=== PATIENT | male | born 1990 | race African-American/Black ===

== ENCOUNTER 2020-07-05 12:25 | Emergency (ER) | payer OTHER, SELFPAY ==
[2020-07-05 13:08] VITALS: BP 129/79; PULSE 84; RESP 16; TEMP 36.6; O2SAT 96; BMI 25.7
--- NOTE | 2020-07-05 13:42 | XR_ITS ---
EXAMINATION: XR CHEST CLINICAL INFORMATION: Chest wall pain COMPARISON: None TECHNIQUE: Frontal view of the chest was obtained. FINDINGS: No significant abnormality is noted involving the heart, lungs, mediastinum, bony thorax or soft tissues. XR/XR chest 1V IMPRESSION: Unremarkable examination.
--- NOTE | 2020-07-05 13:42 | ECG_ITS ---
Test Reason : GENERAL WEAKNESS Blood Pressure : / mmHG Vent. Rate : 075 BPM Atrial Rate : 075 BPM P-R Int : 178 ms QRS Dur : 080 ms QT Int : 374 ms P-R-T Axes : 049 015 019 degrees QTc Int : 417 ms Normal sinus rhythm Nonspecific T wave abnormality Abnormal ECG No previous ECGs available Referred By: Ruiz Adan Electronically Signed By:SHARI BENNETT MD
[2020-07-05 15:10] LABS: MANUAL DIFF FLAG NO
[2020-07-05 15:11] LABS: Basophils Percent Auto 0.3 % (0-2); Eosinophils Absolute Auto 0.1 X10*3/uL (0.0-0.4); Eosinophils Percent Auto 0.8 % (0-4); Hematocrit 46.5 % (42-52); Hemoglobin 17.1 g/dl (14.0-18.0); Imm Gran Abs Auto 0.02 X10*3/uL (0.00-0.03); Imm Gran Pct Auto 0.3 % (0.0-0.4); Lymphocytes Absolute Auto 2.5 X10*3/uL (1.2-4.9); Lymphocytes Percent Auto 39.1 % (20-40); Mean Corpuscular HGB Conc 36.8 g/dl (31.0-36.0); Mean Corpuscular Hemoglobin 31.5 pg (27.0-33.0); Mean Corpuscular Volume 85.8 fL (80-98); Mean Platelet Volume 12.1 fL (9.4-12.4); Monocytes Absolute Auto 0.4 X10*3/uL (0.1-1.2); Monocytes Percent Auto 5.4 % (2-11); Neutrophils Absolute Auto 3.5 X10*3/uL (2.0-8.3); Neutrophils Percent Auto 54.1 % (45-73); Platelet Count 212 X10*3/uL (160-400); Red Blood Count 5.42 X10*6/uL (4.60-5.80); Red Cell Distribution Width 11.9 % (11.0-16.0); White Blood Count 6.4 X10*3/uL (4.8-10.8)
[2020-07-05 15:14] LABS: Glucose Urine UA NEG (NEG); Leukocyte Esterase Urine NEG (NEG); Nitrite Urine NEG (NEG); Specific Gravity - Urine 1.025 (1.005-1.025); Urine Blood NEG (NEG); Urine Ketones NEG (NEG); Urine Protein NEG (NEG-TRACE)
[2020-07-05 15:15] LABS: Appearance Urine CLEAR; Color Urine YELLOW
[2020-07-05 15:22] LABS: RBC Urine 0-2 /HPF (0); WBC Urine 0 /HPF (0-4)
[2020-07-05 15:23] LABS: Mucus Urine 2+ /LPF
--- NOTE | 2020-07-05 15:27 | ED_ITS ---
HPI - General Adult General Chief complaint: General Medical <Myron Blanton MD - Last Filed: 07/11/20 15:59> Stated complaint: HEADACHE MULTIPLE COMPLAINTS <Myron Blanton MD - Last Filed: 07/11/20 15:59> Time Seen by Provider: 07/05/20 13:42 <Myron Blanton MD - Last Filed: 07/11/20 15:59> Source: patient <Ruiz Adan NP - Last Filed: 07/05/20 16:31> Mode of arrival: ambulatory <Ruiz Adan NP - Last Filed: 07/05/20 16:31> Limitations: no limitations <Ruiz Adan NP - Last Filed: 07/05/20 16:31> History of Present Illness HPI narrative: 29-year-old male otherwise healthy denies any significant past medical history presents ambulatory via triage with multiple complaints 1. . States he recently had a break-up from a long-term relationship and had intercourse with a new female which was unprotected and he has concern for STI. He denies any symptoms. States he would like to get tested. No specific exposure expressed. 2. States he has been having intermittent chest pains mostly when he gets ?upset? pain is described as achy in the chest and nonradiating. Denies any shortness of breath, URI symptoms. 3. States he has been having some irritation around the upper and lower eyelid which he has applied cream to but seems to make it denies any pain in the I irritation is only on the skin on the lids. <Ruiz Adan NP - Last Filed: 07/05/20 16:31> Onset (ago): day(s) <Ruiz Adan NP - Last Filed: 07/05/20 16:31> Location: eyes, left and right <Ruiz Adan NP - Last Filed: 07/05/20 16:31> Radiation: non-radiation <Ruiz Adan NP - Last Filed: 07/05/20 16:31> Severity: mild <Ruiz Adan NP - Last Filed: 07/05/20 16:31> Pain Consistency: constant <Ruiz Adan NP - Last Filed: 07/05/20 16:31> Exacerbating factors: none <Ruiz Adan NP - Last Filed: 07/05/20 16:31> Treatments prior to arrival: none <Ruiz Adan NP - Last Filed: 07/05/20 16:31> Related Data Home medications: Previous Rx's Medication Instructions Recorded prednisone 40 mg PO DAILY 5 Days #10 tab 07/05/20 <Myron Blanton MD - Last Filed: 07/11/20 15:59> Allergies/adverse reactions: Allergies Allergy/AdvReac Type Severity Reaction Status Date / Time No Known Allergies Allergy Verified 07/05/20 13:42 <Myron Blanton MD - Last Filed: 07/11/20 15:59> Review of Systems Review of Systems: Constitutional: No Weight loss, No Fever, No Chills, No Night Sweats, No Fatigue, No Malaise ENT/Mouth: No Hearing loss, No Ear Pain, No Nasal Congestion, No Sinus Pain, No Hoarseness, No sore throat, No Rhinorrhea, No Swallowing Difficulty Eyes: No Eye Pain, No Swelling, No Redness, No Foreign Body, No Discharge, No Vision Changes Cardiovascular: No SOB, No Dyspnea on Exertion, No Orthopnea, No Edema, No Palpitations Respiratory: No Cough, No Sputum, No Wheezing, No Smoke Exposure, No Dyspnea Gastrointestinal: No Nausea, No Vomiting, No Diarrhea, No Constipation, No abdominal Pain Genitourinary: No Dysuria, No Urinary Frequency, No Hematuria, No Urinary In continence, No Urgency, No Flank Pain, No Urinary Flow Changes, No Hesitancy Musculoskeletal: No joint pain, No Myalgias, No Joint Swelling Skin: No Skin Lesions Heme/Lymph: No Bruising, No Bleeding,No Lymphadenopathy Endocrine: No Polyuria, No Polydipsia, No Temperature Intolerance <Ruiz Adan NP - Last Filed: 07/05/20 16:31> Yes all other systems are reviewed and are negative <Ruiz Adan NP - Last Filed: 07/05/20 16:31> [facility] Past Medical History Attestation statement: The following information was validated with the patient. <Ruiz Adan NP - Last Filed: 07/05/20 16:31> Social History Social History: Social History Alcohol intake: never Smoked in Last 30 Days: No Use of substances other than those prescribed or required for medical reasons: Yes Substance Use Type: Marijuana Advance Directives: No Advance Directives Information Provided: No <Myron Blanton MD - Last Filed: 07/11/20 15:59> Physical Exam Vital Signs: Vital Signs: Last Vital Signs Temp 97.9 F 07/05/20 15:39 Pulse 71 07/05/20 15:39 Resp 16 07/05/20 15:39 BP 115/70 07/05/20 15:39 Pulse Ox 98 07/05/20 15:39 Body Mass Index 25.7 <Myron Blanton MD - Last Filed: 07/11/20 15:59> Vital Signs: Last Vital Signs Temp 97.9 F 07/05/20 15:39 Pulse 71 07/05/20 15:39 Resp 16 07/05/20 15:39 BP 115/70 07/05/20 15:39 Pulse Ox 98 07/05/20 15:39 Body Mass Index 25.7 Reviewed <Ruizmarco Adan NP - Last Filed: 07/05/20 16:31> Const: General: cooperative and healthy appearing; No acute distress or intoxicated appearing <[facility] DANA Adan - Last Filed: 07/05/20 16:31> Nutritional Appearance: average body habitus <[facility] DANA Adan - Last Filed: 07/05/20 16:31> Orientation/consciousness: patient oriented x3 <[facility] DANA Adan - Last Filed: 07/05/20 16:31> HENMT: Head: Yes normal to inspection <[facility] DANA Adan - Last Filed: 07/05/20 16:31> Ears: hearing grossly normal bilaterally <[facility] DANA Adan - Last Filed: 07/05/20 16:31> Eyes: Other: Slightly dry scaly skin around the bilateral eyes upper and lower lids. Slight hyperplasia consistent with atopic dermatitis. <[facility] DANA Adan - Last Filed: 07/05/20 16:31> General: appearance normal, both eyes and all related structures <[facility] DANA Adan - Last Filed: 07/05/20 16:31> Visual Sotomayor: normal visual sotomayor by confrontation <[facility] DANA Adan - Last Filed: 07/05/20 16:31> Neck: Neck: Yes normal visual inspection <Ruiz Adan COMMERCIAL DESIGNER - Last Filed: 07/05/20 16:31> Thyroid: Thyroid normal <Ruiz Loco COMMERCIAL DESIGNER - Last Filed: 07/05/20 16:31> Chest: Chest palpation & inspection: normal inspection of the chest <Ruiz Adan COMMERCIAL DESIGNER - Last Filed: 07/05/20 16:31> Resp: Effort & Inspection: normal respiratory effort <[facility] Loco COMMERCIAL DESIGNER - Last Filed: 07/05/20 16:31> Cardio: Jugular venous distension: no JVD <Ruiz Loco COMMERCIAL DESIGNER - Last Filed: 07/05/20 16:31> Rate: regular rate <[facility] Loco - Last Filed: 07/05/20 16:31> Heart sounds: S1 normal heart sound present and S2 normal heart sound present <[facility] Loco - Last Filed: 07/05/20 16:31> GI: Inspection: Yes normal to inspection <[facility] Loco - Last Filed: 07/05/20 16:31> Percussion: Yes normal to percussion <[facility] Loco COMMERCIAL DESIGNER - Last Filed: 07/05/20 16:31> Auscultation: normal bowel sounds <Ruiz Loco COMMERCIAL DESIGNER - Last Filed: 07/05/20 16:31> : General: Yes no CVA tenderness <Ruiz Loco COMMERCIAL DESIGNER - Last Filed: 07/05/20 16:31> Back/Spine/Pelvis: Back: no CVA tenderness <[facility] Loco - Last Filed: 07/05/20 16:31> Skin: General skin exam: no rashes or lesions noted <Ruiz Adan COMMERCIAL DESIGNER - Last Filed: 07/05/20 16:31> Neuro: General: patient oriented x3 <Ruiz Adan COMMERCIAL DESIGNER - Last Filed: 07/05/20 16:31> Extrem: General: Yes normal to inspection <Ruiz Loco COMMERCIAL DESIGNER - Last Filed: 07/05/20 16:31> Course Course Course Narrative: I have discussed the case and management with the [place] <Myron Blanton MD - Last Filed: 07/11/20 15:59> Medical Decision Making [facility] Narrative Medical decision making narrative: Interviewed 29-year-old male with no significant past medical history presenting with multiple complaints as noted above. Chest x-ray, labs overall stable. Troponin negative. EKG with nonspecific T-wave findings case was discussed with attending Dr. mariano nguyen refer for outpatient. In relation to his rash around the eyes consistent with atopic dermatitis will start a short course prednisone. In terms of room his exposure to possible STI offers no specific concern he was tested for CT Marcella and empirically treated otherwise asymptomatic. Will refer to outpatient clinic for full panel testing. Patient verbalized understanding. Stable for discharge. <Ruiz Adan NP - Last Filed: 07/05/20 16:31> Lab Data Result diagrams: : 07/05/20 15:03 07/05/20 15:03 <Myron Blanton MD - Last Filed: 07/11/20 15:59> Labs: Lab Results 07/05/20 07/05/20 07/05/20 Range/Units 15:03 15:03 15:03 WBC 6.4 (4.8-10.8) X10*3/uL RBC 5.42 (4.60-5.80) X10*6/uL Hgb 17.1 (14.0-18.0) g/dl Hct 46.5 (42-52) % MCV 85.8 (80-98) fL MCH 31.5 (27.0-33.0) pg MCHC 36.8 H (31.0-36.0) g/dl RDW 11.9 (11.0-16.0) % Plt Count 212 (160-400) X10*3/uL MPV 12.1 (9.4-12.4) fL Immature Gran % (Auto) 0.3 (0.0-0.4) % Neut % (Auto) 54.1 (45-73) % Lymph % (Auto) 39.1 (20-40) % Grainger % (Auto) 5.4 (2-11) % Eos % (Auto) 0.8 (0-4) % Baso % (Auto) 0.3 (0-2) % Lymph # (Auto) 2.5 (1.2-4.9) X10*3/uL Grainger # (Auto) 0.4 (0.1-1.2) X10*3/uL Eos # (Auto) 0.1 (0.0-0.4) X10*3/uL Baso # (Auto) 0.0 (0.0-0.2) X10*3/uL Abs Immat Gran (auto) 0.02 (0.00-0.03) X10*3/uL Absolute Neuts (auto) 3.5 (2.0-8.3) X10*3/uL Absolute Nucleated RBC 0.000 (0.0-0.012) X10*3/uL Nucleated RBC % (auto) 0.0 (0.0-0.2) /100WBC Sodium 136 (135-145) mmol/L Potassium 4.4 (3.3-5.1) mmol/l Chloride 104 (96-108) mmol/L Carbon Dioxide 24 (22-29) mmol/L Anion Gap 12 (12-20) BUN 11 (9-16) mg/dL Creatinine 1.22 (0.5-1.4) mg/dL Estim Creat Clear Calc 94.2 Estimated GFR > 60 Random Glucose 96 (60-115) mg/dL Calcium 8.9 (8.4-10.2) mg/dL Total Bilirubin 0.7 (0.0-1.0) mg/dL AST 18 (5-37) U/L ALT 18 (0-40) U/L Alkaline Phosphatase 56 (39-117) U/L Troponin I High Sens < 3.5 (<3.5-35.0) ng/L Total Protein 7.1 (6.5-8.0) g/dL Albumin 4.3 (3.5-5.0) g/dL Urine Color Urine Appearance Urine pH (5.0-8.0) Ur Specific Carney (1.005-1.025) Urine Protein (NEG-TRACE) MG/DL Urine Glucose (UA) (NEG) MG/DL Urine Ketones (NEG) MG/DL Urine Blood (NEG) Urine Nitrite (NEG) Ur Leukocyte Esterase (NEG) Urine RBC (0) /HPF Urine WBC (0-4) /HPF Ur Squamous Epith Cells /LPF Urine Bacteria /LPF Urine Mucus /LPF Chlam trachomat DNA PCR (Not Detect.) N.gonorrhoeae DNA (PCR) (Not Detect.) 07/05/20 07/05/20 Range/Units 15:03 15:03 WBC (4.8-10.8) X10*3/uL RBC (4.60-5.80) X10*6/uL Hgb (14.0-18.0) g/dl Hct (42-52) % MCV (80-98) fL MCH (27.0-33.0) pg MCHC (31.0-36.0) g/dl RDW (11.0-16.0) % Plt Count (160-400) X10*3/uL MPV (9.4-12.4) fL Immature Gran % (Auto) (0.0-0.4) % Neut % (Auto) (45-73) % Lymph % (Auto) (20-40) % Grainger % (Auto) (2-11) % Eos % (Auto) (0-4) % Baso % (Auto) (0-2) % Lymph # (Auto) (1.2-4.9) X10*3/uL Grainger # (Auto) (0.1-1.2) X10*3/uL Eos # (Auto) (0.0-0.4) X10*3/uL Baso # (Auto) (0.0-0.2) X10*3/uL Abs Immat Gran (auto) (0.00-0.03) X10*3/uL Absolute Neuts (auto) (2.0-8.3) X10*3/uL Absolute Nucleated RBC (0.0-0.012) X10*3/uL Nucleated RBC % (auto) (0.0-0.2) /100WBC Sodium (135-145) mmol/L Potassium (3.3-5.1) mmol/l Chloride (96-108) mmol/L Carbon Dioxide (22-29) mmol/L Anion Gap (12-20) BUN (9-16) mg/dL Creatinine (0.5-1.4) mg/dL Estim Creat Clear Calc Estimated GFR Random Glucose (60-115) mg/dL Calcium (8.4-10.2) mg/dL Total Bilirubin (0.0-1.0) mg/dL AST (5-37) U/L ALT (0-40) U/L Alkaline Phosphatase (39-117) U/L Troponin I High Sens (<3.5-35.0) ng/L Total Protein (6.5-8.0) g/dL Albumin (3.5-5.0) g/dL Urine Color YELLOW Urine Appearance CLEAR Urine pH 7.0 (5.0-8.0) Ur Specific Carney 1.025 (1.005-1.025) Urine Protein NEG (NEG-TRACE) MG/DL Urine Glucose (UA) NEG (NEG) MG/DL Urine Ketones NEG (NEG) MG/DL Urine Blood NEG (NEG) Urine Nitrite NEG (NEG) Ur Leukocyte Esterase NEG (NEG) Urine RBC 0-2 (0) /HPF Urine WBC 0 (0-4) /HPF Ur Squamous Epith Cells NONE /LPF Urine Bacteria NONE /LPF Urine Mucus 2+ /LPF Chlam trachomat DNA PCR NOT DETECTED (Not Detect.) N.gonorrhoeae DNA (PCR) NOT DETECTED (Not Detect.) <Myron Blanton MD - Last Filed: 07/11/20 15:59> Lab Results 07/05/20 07/05/20 07/05/20 Range/Units 15:03 15:03 15:03 WBC 6.4 (4.8-10.8) X10*3/uL RBC 5.42 (4.60-5.80) X10*6/uL Hgb 17.1 (14.0-18.0) g/dl Hct 46.5 (42-52) % MCV 85.8 (80-98) fL MCH 31.5 (27.0-33.0) pg MCHC 36.8 H (31.0-36.0) g/dl RDW 11.9 (11.0-16.0) % Plt Count 212 (160-400) X10*3/uL MPV 12.1 (9.4-12.4) fL Immature Gran % (Auto) 0.3 (0.0-0.4) % Neut % (Auto) 54.1 (45-73) % Lymph % (Auto) 39.1 (20-40) % Grainger % (Auto) 5.4 (2-11) % Eos % (Auto) 0.8 (0-4) % Baso % (Auto) 0.3 (0-2) % Lymph # (Auto) 2.5 (1.2-4.9) X10*3/uL Grainger # (Auto) 0.4 (0.1-1.2) X10*3/uL Eos # (Auto) 0.1 (0.0-0.4) X10*3/uL Baso # (Auto) 0.0 (0.0-0.2) X10*3/uL Abs Immat Gran (auto) 0.02 (0.00-0.03) X10*3/uL Absolute Neuts (auto) 3.5 (2.0-8.3) X10*3/uL Absolute Nucleated RBC 0.000 (0.0-0.012) X10*3/uL Nucleated RBC % (auto) 0.0 (0.0-0.2) /100WBC Sodium 136 (135-145) mmol/L Potassium 4.4 (3.3-5.1) mmol/l Chloride 104 (96-108) mmol/L Carbon Dioxide 24 (22-29) mmol/L Anion Gap 12 (12-20) BUN 11 (9-16) mg/dL Creatinine 1.22 (0.5-1.4) mg/dL Estim Creat Clear Calc 94.2 Estimated GFR > 60 Random Glucose 96 (60-115) mg/dL Calcium 8.9 (8.4-10.2) mg/dL Total Bilirubin 0.7 (0.0-1.0) mg/dL AST 18 (5-37) U/L ALT 18 (0-40) U/L Alkaline Phosphatase 56 (39-117) U/L Troponin I High Sens < 3.5 (<3.5-35.0) ng/L Total Protein 7.1 (6.5-8.0) g/dL Albumin 4.3 (3.5-5.0) g/dL Urine Color Urine Appearance Urine pH (5.0-8.0) Ur Specific Carney (1.005-1.025) Urine Protein (NEG-TRACE) MG/DL Urine Glucose (UA) (NEG) MG/DL Urine Ketones (NEG) MG/DL Urine Blood (NEG) Urine Nitrite (NEG) Ur Leukocyte Esterase (NEG) Urine RBC (0) /HPF Urine WBC (0-4) /HPF Ur Squamous Epith Cells /LPF Urine Bacteria /LPF Urine Mucus /LPF Chlam trachomat DNA PCR (Not Detect.) N.gonorrhoeae DNA (PCR) (Not Detect.) 07/05/20 07/05/20 Range/Units 15:03 15:03 WBC (4.8-10.8) X10*3/uL RBC (4.60-5.80) X10*6/uL Hgb (14.0-18.0) g/dl Hct (42-52) % MCV (80-98) fL MCH (27.0-33.0) pg MCHC (31.0-36.0) g/dl RDW (11.0-16.0) % Plt Count (160-400) X10*3/uL MPV (9.4-12.4) fL Immature Gran % (Auto) (0.0-0.4) % Neut % (Auto) (45-73) % Lymph % (Auto) (20-40) % Grainger % (Auto) (2-11) % Eos % (Auto) (0-4) % Baso % (Auto) (0-2) % Lymph # (Auto) (1.2-4.9) X10*3/uL Grainger # (Auto) (0.1-1.2) X10*3/uL Eos # (Auto) (0.0-0.4) X10*3/uL Baso # (Auto) (0.0-0.2) X10*3/uL Abs Immat Gran (auto) (0.00-0.03) X10*3/uL Absolute Neuts (auto) (2.0-8.3) X10*3/uL Absolute Nucleated RBC (0.0-0.012) X10*3/uL Nucleated RBC % (auto) (0.0-0.2) /100WBC Sodium (135-145) mmol/L Potassium (3.3-5.1) mmol/l Chloride (96-108) mmol/L Carbon Dioxide (22-29) mmol/L Anion Gap (12-20) BUN (9-16) mg/dL Creatinine (0.5-1.4) mg/dL Estim Creat Clear Calc Estimated GFR Random Glucose (60-115) mg/dL Calcium (8.4-10.2) mg/dL Total Bilirubin (0.0-1.0) mg/dL AST (5-37) U/L ALT (0-40) U/L Alkaline Phosphatase (39-117) U/L Troponin I High Sens (<3.5-35.0) ng/L Total Protein (6.5-8.0) g/dL Albumin (3.5-5.0) g/dL Urine Color YELLOW Urine Appearance CLEAR Urine pH 7.0 (5.0-8.0) Ur Specific Carney 1.025 (1.005-1.025) Urine Protein NEG (NEG-TRACE) MG/DL Urine Glucose (UA) NEG (NEG) MG/DL Urine Ketones NEG (NEG) MG/DL Urine Blood NEG (NEG) Urine Nitrite NEG (NEG) Ur Leukocyte Esterase NEG (NEG) Urine RBC 0-2 (0) /HPF Urine WBC 0 (0-4) /HPF Ur Squamous Epith Cells NONE /LPF Urine Bacteria NONE /LPF Urine Mucus 2+ /LPF Chlam trachomat DNA PCR NOT DETECTED (Not Detect.) N.gonorrhoeae DNA (PCR) NOT DETECTED (Not Detect.) <Ruiz Adan NP - Last Filed: 07/05/20 16:31> Imaging Data Chest x-ray: Radiologist's impression: GLO hernandez 29 M 1990 [place] [id number] XRay Report Signed Patient: GLO hernandezMR#: [id number] : 1990Acct:[id number] Age/Sex: 29 / MADM Date: 07/05/20 Loc: .ED Attending Dr: Ordering Physician: Ruiz Adan NP Date of Service: 07/05/20 Procedure(s): XR chest 1V Accession Number(s): [id number] cc: Ruiz Adan NP~ EXAMINATION: XR CHEST CLINICAL INFORMATION: Chest wall pain COMPARISON: None TECHNIQUE: Frontal view of the chest was obtained. FINDINGS: No significant abnormality is noted involving the heart, lungs, mediastinum, bony thorax or soft tissues. XR/XR chest 1V IMPRESSION: Unremarkable examination. Dictated By:SENTHIL BENNETT MD Signed By:<Electronically signed by SENTHIL BENNETT MD in OV>07/05/20 1354 DD/ 1342 TD/TT: Feed Mixer Helper: JAYLENE <Ruiz Adan NP - Last Filed: 07/05/20 16:31> ECG Data Interpretation: Normal sinus rhythm Rate 75 Nonspecific T-wave abnormality in the lateral leads No previous available <Ruiz Adan NP - Last Filed: 07/05/20 16:31> Discharge Plan Discharge Clinical Impression: Atypical chest pain, Anxiety, Screen for STD (sexually transmitted disease), Dermatitis contact, eyelid <Myron Blanton MD - Last Filed: 07/11/20 15:59> Patient Disposition: Home, Self-Care <Myron Blanton MD - Last Filed: 07/11/20 15:59> Instructions: Chest Pain (ED), Sexually Transmitted Diseases (ED), Male Condom Use (ED), Anxiety (ED), Dermatitis (ED) <Myron Blanton MD - Last Filed: 07/11/20 15:59> Prescriptions: New prednisone 20 mg tablet 40 mg PO DAILY 5 Days Qty: 10 RF: 0 <Myron Blanton MD - Last Filed: 07/11/20 15:59> Referrals: Physician,Unknown [Primary Care Provider] - 2 days ([facility] [place], [place] Address: [address] [place] [address] Hours: Open ? Closes 7PM ) <Myron Blanton MD - Last Filed: 07/11/20 15:59> Interventions: ED Discharge Assessment Last Done: 07/05/20 16:29 <Myron Blanton MD - Last Filed: 07/11/20 15:59> Discharge Date/Time: 07/05/20 16:30 <Myron Blanton MD - Last Filed: 07/11/20 15:59>
[2020-07-05 15:39] VITALS: BP 115/70; PULSE 71; RESP 16; TEMP 36.6; O2SAT 98
[2020-07-05 15:40] LABS: Alanine Aminotransferase 18 U/L (0-40); Albumin Level 4.3 g/dL (3.5-5.0); Alkaline Phosphatase 56 U/L (39-117); Anion Gap 12 (12-20); Aspartate Amino Transferase 18 U/L (5-37); Bilirubin Total 0.7 mg/dL (0.0-1.0); Blood Urea Nitrogen 11 mg/dL (9-16); Calcium 8.9 mg/dL (8.4-10.2); Carbon Dioxide 24 mmol/L (22-29); Chloride 104 mmol/L (96-108); Creatinine Clr Calc Pharmacy 94.2; Estimated Glomerular Filt Rate > 60; Glucose Random 96 mg/dL (60-115); Potassium 4.4 mmol/l (3.3-5.1); Sodium 136 mmol/L (135-145); Total Protein 7.1 g/dL (6.5-8.0)
[2020-07-05 15:42] LABS: Troponin-I High Sensitivity < 3.5 ng/L (<3.5-35.0)
[2020-07-05] MEDS: Azithromycin 500 MG TABLET 1000 MG PO (16:17)
[2020-07-05] MEDS: cefTRIAXone sodium 250 MG, Lidocaine HCl 1 % MPF 0.9 ML IM (16:17)
[2020-07-06 10:54] LABS: CT PCR NOT DETECTED (Not Detect.); NG PCR NOT DETECTED (Not Detect.)
== END 2020-07-05 16:30 | disposition home or self-care (01) ==
PROVIDERS: Nurse Practitioner Primary Care; Emergency Provider Emergency Medicine
DX: R07.89 Other chest pain (principal); H01.119 Allergic dermatitis of unspecified eye, unspecified eyelid; R51.9 Headache, unspecified; F41.9 Anxiety disorder, unspecified; F43.0 Acute stress reaction; Z20.2 Contact with and (suspected) exposure to infections with a predominantly sexual mode of transmission
CPT/HCPCS: 36415; 71045; 80053; 81001; 84484; 85025; 87491; 87591; 93005; 96372; 99284; J0696

== ENCOUNTER 2021-04-29 23:51 | Emergency (ER) | payer OTHER, SELFPAY ==
--- NOTE | ~2021-04-29 | CT_ITS ---
EXAMINATION: CT ANGIOGRAM RIGHT UPPER EXTREMITY CLINICAL INFORMATION: Laceration COMPARISON: None TECHNIQUE: Multidetector CT imaging of the right upper extremity was performed after the administration of 80 mL Omnipaque 350 intravenous contrast. Coronal and sagittal reformats are reviewed. This CT examination was performed using dose optimization techniques as appropriate, variously including the following: *Automated exposure control *Adjustment of mA and/or kV according to patient size (this includes techniques or standardized protocols for targeted exams where dose is matched to indication/reason for exam; i.e. extremities or head) *Use of iterative reconstruction technique DLP: 228 mGy-cm FINDINGS: The subclavian, axillary, brachial, radial and ulnar arteries are widely patent without evidence of traumatic laceration. There is evidence of a laceration involving the soft tissues overlying the biceps as well as the biceps musculature along the distal humerus, with associated subcutaneous and intramuscular air. An additional laceration is present involving the soft tissues of the volar forearm, both proximally and distally. No osseous abnormalities. No radiopaque foreign bodies. CT/CT angio UE RT IMPRESSION: No evidence of arterial injury within the right upper extremity.
[2021-04-29 23:59] VITALS: BP 139/86; PULSE 116; RESP 16; O2SAT 97; BMI 29.9
[2021-04-30 00:12] LABS: MANUAL DIFF FLAG NO
[2021-04-30 00:14] LABS: Basophils Percent Auto 0.2 % (0-2); Eosinophils Percent Auto 0.2 % (0-4); Hematocrit 48.1 % (42-52); Hemoglobin 17.8 g/dl (14.0-18.0); Imm Gran Abs Auto 0.06 X10*3/uL (0.00-0.03); Imm Gran Pct Auto 0.5 % (0.0-0.4); Lymphocytes Absolute Auto 4.7 X10*3/uL (1.2-4.9); Lymphocytes Percent Auto 35.8 % (20-40); Mean Corpuscular Hemoglobin 31.5 pg (27.0-33.0); Mean Corpuscular Volume 85.1 fL (80-98); Mean Platelet Volume 11.9 fL (9.4-12.4); Monocytes Absolute Auto 0.6 X10*3/uL (0.1-1.2); Monocytes Percent Auto 4.8 % (2-11); Neutrophils Absolute Auto 7.7 X10*3/uL (2.0-8.3); Neutrophils Percent Auto 58.5 % (45-73); Platelet Count 250 X10*3/uL (160-400); Red Blood Count 5.65 X10*6/uL (4.60-5.80); Red Cell Distribution Width 12.4 % (11.0-16.0); White Blood Count 13.1 X10*3/uL (4.8-10.8)
[2021-04-30 00:24] LABS: Prothrombin Time 11.5 SEC (9.9-13.0)
[2021-04-30 00:28] LABS: Alanine Aminotransferase 34 U/L (0-40); Albumin Level 4.8 g/dL (3.5-5.0); Alkaline Phosphatase 64 U/L (39-117); Anion Gap 20 (12-20); Aspartate Amino Transferase 22 U/L (5-37); Bilirubin Total 0.7 mg/dL (0.0-1.0); Blood Urea Nitrogen 7 mg/dL (9-16); Calcium 9.8 mg/dL (8.4-10.2); Carbon Dioxide 17 mmol/L (22-29); Chloride 106 mmol/L (96-108); Creatinine Clr Calc Pharmacy 100.5; Estimated Glomerular Filt Rate > 60; Glucose Random 106 mg/dL (60-115); Potassium 3.8 mmol/L (3.3-5.1); Sodium 139 mmol/L (135-145); Total Protein 7.8 g/dL (6.5-8.0)
--- NOTE | 2021-04-30 00:32 | ED_ITS ---
HPI - Wound/Laceration General Chief Complaint: Wound/Laceration <Mandie Mccullough MD - Last Filed: 04/30/21 04:39> Stated Complaint: Arm lac <Mandie Mccullough MD - Last Filed: 04/30/21 04:39> Time Seen by Provider: 04/29/21 23:57 <Mandie Mccullough MD - Last Filed: 04/30/21 04:39> Source: patient <Mandie Mccullough MD - Last Filed: 04/30/21 04:39> Mode of arrival: ambulatory <Mandie Mccullough MD - Last Filed: 04/30/21 04:39> History of Present Illness HPI narrative: 30-year-old male presents to the ER with multiple lacerations the right upper extremity after punching a window at home. Patient does not know when his last Tdap was and has no other complaints. <Mandie Mccullough MD - Last Filed: 04/30/21 04:39> Related Data Home Medications: Previous Rx's Medication Instructions Recorded prednisone 20 mg tablet 40 mg PO DAILY 5 Days #10 tab 07/05/20 cephalexin 500 mg capsule 500 mg PO Q12H 5 Days #10 cap 04/30/21 doxycycline hyclate 100 mg tablet 100 mg PO BID 5 Days #10 tab 04/30/21 <Mandie Mccullough MD - Last Filed: 04/30/21 04:39> Allergies/Adverse Reactions: Allergies Allergy/AdvReac Type Severity Reaction Status Date / Time No Known Allergies Allergy Verified 07/05/20 13:42 <Mandie Mccullough MD - Last Filed: 04/30/21 04:39> Review of Systems Review of Systems: For positives and negatives as stated in HPI 10 point of systems is otherwise negative. <Mandie Mccullough MD - Last Filed: 04/30/21 04:39> PMFSH Past Medical History Source: nursing notes reviewed <Mandie Mccullough MD - Last Filed: 04/30/21 04:39> Social History Social History: Social History Alcohol intake: never Substance Use Type: Marijuana Advance Directives: No <Mandie Mccullough MD - Last Filed: 04/30/21 04:39> Physical Exam Vital Signs: Vital Signs: Last Vital Signs Pulse 116 H 04/29/21 23:59 Resp 16 04/29/21 23:59 BP 139/86 04/29/21 23:59 Pulse Ox 97 04/29/21 23:59 Body Mass Index 29.9 VITAL SIGNS: Reviewed. GENERAL: Well developed, well nourished, in no acute distress. HEAD: Normocephalic/atraumatic EYES: PERRLA, EOMI EARS: Ext canals without abnormality, TMs non-bulging and non-erythematous NOSE: Nares patent bilateral OROPHARYNX: no oral lesions noted, posterior pharynx clear LUNGS: Normal breath sounds. No adventitious sounds or accessory muscle use. SpO2<97>, no chest wall injury CARDIOVASCULAR: Regular rate and rhythm without noted murmurs ABDOMEN: Soft, non-tender, non-distended with bowel sounds, no abdominal wall in jury. RIGHT UPPER EXTREMITY: There were 6-2 cm to 14 cm lacerations SKIN: Inspection of the skin reveals no rashes NEUROLOGIC: Alert and oriented x 4. <Mandie Mccullough MD - Last Filed: 04/30/21 04:39> Vital Signs: Last Vital Signs Pulse 116 H 04/29/21 23:59 Resp 16 04/29/21 23:59 BP 139/86 04/29/21 23:59 Pulse Ox 97 04/29/21 23:59 Body Mass Index 29.9 <Oziel Molina MD - Last Filed: 04/30/21 04:35> Course Course Course Narrative: 30-year-old male with history and clinical presentation consistent with multiple lacerations to right upper extremity good hemostasis was immediately established with pressure dressing and lab work was obtained as well as a CT with IV contrast to evaluate for any arterial injury to that extremity. Review of all investigations otherwise within normal limits and the multiple lacerations were repaired by Dr. Molina (please see the procedure note for details.) Patient received Tdap as well as initial antibiotics and will be discharged with remaining course and instructions follow-up with his primary care provider for re-evaluation as well as staple removal. <Mandie Mccullough MD - Last Filed: 04/30/21 04:39> MDM - Wound/Laceration Lab Data Result diagrams: : 04/30/21 00:08 04/30/21 00:08 <Mandie Mccullough MD - Last Filed: 04/30/21 04:39> Labs: Lab Results 04/30/21 04/30/21 04/30/21 Range/Units 00:08 00:08 00:10 WBC 13.1 H (4.8-10.8) X10*3/uL RBC 5.65 (4.60-5.80) X10*6/uL Hgb 17.8 (14.0-18.0) g/dl Hct 48.1 (42-52) % MCV 85.1 (80-98) fL MCH 31.5 (27.0-33.0) pg MCHC 37.0 H (31.0-36.0) g/dl RDW 12.4 (11.0-16.0) % Plt Count 250 (160-400) X10*3/uL MPV 11.9 (9.4-12.4) fL Immature Gran % (Auto) 0.5 H (0.0-0.4) % Neut % (Auto) 58.5 (45-73) % Lymph % (Auto) 35.8 (20-40) % [place] % (Auto) 4.8 (2-11) % Eos % (Auto) 0.2 (0-4) % Baso % (Auto) 0.2 (0-2) % Lymph # (Auto) 4.7 (1.2-4.9) X10*3/uL [place] # (Auto) 0.6 (0.1-1.2) X10*3/uL Eos # (Auto) 0.0 (0.0-0.4) X10*3/uL Baso # (Auto) 0.0 (0.0-0.2) X10*3/uL Abs Immat Gran (auto) 0.06 H (0.00-0.03) X10*3/uL Absolute Neuts (auto) 7.7 (2.0-8.3) X10*3/uL Absolute Nucleated RBC 0.000 (0.0-0.012) X10*3/uL Nucleated RBC % (auto) 0.0 (0.0-0.2) /100WBC PT (9.9-13.0) SEC INR (0.9-1.1) Sodium 139 (135-145) mmol/L Potassium 3.8 (3.3-5.1) mmol/L Chloride 106 (96-108) mmol/L Carbon Dioxide 17 L (22-29) mmol/L Anion Gap 20 (12-20) BUN 7 L (9-16) mg/dL Creatinine 1.23 (0.5-1.4) mg/dL Estim Creat Clear Calc 100.5 Estimated GFR > 60 Random Glucose 106 (60-115) mg/dL Calcium 9.8 D (8.4-10.2) mg/dL Total Bilirubin 0.7 (0.0-1.0) mg/dL AST 22 (5-37) U/L ALT 34 (0-40) U/L Alkaline Phosphatase 64 (39-117) U/L Total Protein 7.8 (6.5-8.0) g/dL Albumin 4.8 (3.5-5.0) g/dL Blood Type O Positive Antibody Screen NEGATIVE 04/30/21 Range/Units 00:15 WBC (4.8-10.8) X10*3/uL RBC (4.60-5.80) X10*6/uL Hgb (14.0-18.0) g/dl Hct (42-52) % MCV (80-98) fL MCH (27.0-33.0) pg MCHC (31.0-36.0) g/dl RDW (11.0-16.0) % Plt Count (160-400) X10*3/uL MPV (9.4-12.4) fL Immature Gran % (Auto) (0.0-0.4) % Neut % (Auto) (45-73) % Lymph % (Auto) (20-40) % [place] % (Auto) (2-11) % Eos % (Auto) (0-4) % Baso % (Auto) (0-2) % Lymph # (Auto) (1.2-4.9) X10*3/uL [place] # (Auto) (0.1-1.2) X10*3/uL Eos # (Auto) (0.0-0.4) X10*3/uL Baso # (Auto) (0.0-0.2) X10*3/uL Abs Immat Gran (auto) (0.00-0.03) X10*3/uL Absolute Neuts (auto) (2.0-8.3) X10*3/uL Absolute Nucleated RBC (0.0-0.012) X10*3/uL Nucleated RBC % (auto) (0.0-0.2) /100WBC PT 11.5 (9.9-13.0) SEC INR 1.0 (0.9-1.1) Sodium (135-145) mmol/L Potassium (3.3-5.1) mmol/L Chloride (96-108) mmol/L Carbon Dioxide (22-29) mmol/L Anion Gap (12-20) BUN (9-16) mg/dL Creatinine (0.5-1.4) mg/dL Estim Creat Clear Calc Estimated GFR Random Glucose (60-115) mg/dL Calcium (8.4-10.2) mg/dL Total Bilirubin (0.0-1.0) mg/dL AST (5-37) U/L ALT (0-40) U/L Alkaline Phosphatase (39-117) U/L Total Protein (6.5-8.0) g/dL Albumin (3.5-5.0) g/dL Blood Type Antibody Screen <Mandie Mccullough MD - Last Filed: 04/30/21 04:39> Lab Results 04/30/21 04/30/21 04/30/21 Range/Units 00:08 00:08 00:10 WBC 13.1 H (4.8-10.8) X10*3/uL RBC 5.65 (4.60-5.80) X10*6/uL Hgb 17.8 (14.0-18.0) g/dl Hct 48.1 (42-52) % MCV 85.1 (80-98) fL MCH 31.5 (27.0-33.0) pg MCHC 37.0 H (31.0-36.0) g/dl RDW 12.4 (11.0-16.0) % Plt Count 250 (160-400) X10*3/uL MPV 11.9 (9.4-12.4) fL Immature Gran % (Auto) 0.5 H (0.0-0.4) % Neut % (Auto) 58.5 (45-73) % Lymph % (Auto) 35.8 (20-40) % [place] % (Auto) 4.8 (2-11) % Eos % (Auto) 0.2 (0-4) % Baso % (Auto) 0.2 (0-2) % Lymph # (Auto) 4.7 (1.2-4.9) X10*3/uL [place] # (Auto) 0.6 (0.1-1.2) X10*3/uL Eos # (Auto) 0.0 (0.0-0.4) X10*3/uL Baso # (Auto) 0.0 (0.0-0.2) X10*3/uL Abs Immat Gran (auto) 0.06 H (0.00-0.03) X10*3/uL Absolute Neuts (auto) 7.7 (2.0-8.3) X10*3/uL Absolute Nucleated RBC 0.000 (0.0-0.012) X10*3/uL Nucleated RBC % (auto) 0.0 (0.0-0.2) /100WBC PT (9.9-13.0) SEC INR (0.9-1.1) Sodium 139 (135-145) mmol/L Potassium 3.8 (3.3-5.1) mmol/L Chloride 106 (96-108) mmol/L Carbon Dioxide 17 L (22-29) mmol/L Anion Gap 20 (12-20) BUN 7 L (9-16) mg/dL Creatinine 1.23 (0.5-1.4) mg/dL Estim Creat Clear Calc 100.5 Estimated GFR > 60 Random Glucose 106 (60-115) mg/dL Calcium 9.8 D (8.4-10.2) mg/dL Total Bilirubin 0.7 (0.0-1.0) mg/dL AST 22 (5-37) U/L ALT 34 (0-40) U/L Alkaline Phosphatase 64 (39-117) U/L Total Protein 7.8 (6.5-8.0) g/dL Albumin 4.8 (3.5-5.0) g/dL Blood Type O Positive Antibody Screen NEGATIVE 04/30/21 Range/Units 00:15 WBC (4.8-10.8) X10*3/uL RBC (4.60-5.80) X10*6/uL Hgb (14.0-18.0) g/dl Hct (42-52) % MCV (80-98) fL MCH (27.0-33.0) pg MCHC (31.0-36.0) g/dl RDW (11.0-16.0) % Plt Count (160-400) X10*3/uL MPV (9.4-12.4) fL Immature Gran % (Auto) (0.0-0.4) % Neut % (Auto) (45-73) % Lymph % (Auto) (20-40) % [place] % (Auto) (2-11) % Eos % (Auto) (0-4) % Baso % (Auto) (0-2) % Lymph # (Auto) (1.2-4.9) X10*3/uL [place] # (Auto) (0.1-1.2) X10*3/uL Eos # (Auto) (0.0-0.4) X10*3/uL Baso # (Auto) (0.0-0.2) X10*3/uL Abs Immat Gran (auto) (0.00-0.03) X10*3/uL Absolute Neuts (auto) (2.0-8.3) X10*3/uL Absolute Nucleated RBC (0.0-0.012) X10*3/uL Nucleated RBC % (auto) (0.0-0.2) /100WBC PT 11.5 (9.9-13.0) SEC INR 1.0 (0.9-1.1) Sodium (135-145) mmol/L Potassium (3.3-5.1) mmol/L Chloride (96-108) mmol/L Carbon Dioxide (22-29) mmol/L Anion Gap (12-20) BUN (9-16) mg/dL Creatinine (0.5-1.4) mg/dL Estim Creat Clear Calc Estimated GFR Random Glucose (60-115) mg/dL Calcium (8.4-10.2) mg/dL Total Bilirubin (0.0-1.0) mg/dL AST (5-37) U/L ALT (0-40) U/L Alkaline Phosphatase (39-117) U/L Total Protein (6.5-8.0) g/dL Albumin (3.5-5.0) g/dL Blood Type Antibody Screen <Oziel Molina MD - Last Filed: 04/30/21 04:35> Procedures Procedure Narrative Procedure Narrative: Multiple laceration wound repair procedure note: The patient had 6 complex wounds to his right forearm which required multilayer wound closure. All wounds were full skin thickness and through the subcutaneous layer down to the muscle with no significant muscle injury. Laceration 1.: 4 cm in length, 1.5 cm in diameter The laceration was prepped with Betadine and then anesthetized with 5 cc of 2% lidocaine with epinephrine. The wound was irrigated with normal saline. The wound was explored and no foreign bodies were found in the wound. The wound was closed in 2 layers. The inner layer was closed with 3.0 Polysorb absorbable sutures x3. The outer layer was stapled closed with 9 cecilio. The patient tolerated the procedure well. Laceration 2.: 3 cm in length, 1.5 cm in diameter The laceration was prepped with Betadine and then anesthetized with 5 cc of 2% lidocaine with epinephrine. The wound was irrigated with normal saline. The wound was explored and no foreign bodies were found in the wound. The wound was closed in 2 layers. The inner layer was closed with 3.0 Polysorb absorbable sutures x3. The outer layer was stapled closed with 6 cecilio. The patient to lerated the procedure well. Laceration 3.: 15 cm in length, 2.0 cm in diameter The laceration was prepped with Betadine and then anesthetized with 10 cc of 2% lidocaine with epinephrine. The wound was irrigated with normal saline. The wound was explored and no foreign bodies were found in the wound. The wound was closed in 2 layers. The inner layer was closed with 3.0 Polysorb absorbable sutures x12. The outer layer was stapled closed with 29 cecilio. The patient tolerated the procedure well. Laceration 4.: 4 cm in length,1.0 cm in diameter The laceration was prepped with Betadine and then anesthetized with 5 cc of 2% lidocaine with epinephrine. The wound was irrigated with normal saline. The wound was explored and no foreign bodies were found in the wound. The wound was closed in 2 layers. The inner layer was closed with 3.0 Polysorb absorbable sutures x6. The outer layer was stapled closed with 8 cecilio. The patient t olerated the procedure well. Laceration 5.: 2 cm in length, 1.0 cm in diameter The laceration was prepped with Betadine and then anesthetized with 4 cc of 2% lidocaine with epinephrine. The wound was irrigated with normal saline. The wound was explored and no foreign bodies were found in the wound. The wound was closed in 2 layers. The inner layer was closed with 3.0 Polysorb absorbable sutures x3. The outer layer was stapled closed with 3.0 Momosoft nonabsorbable sutures times 8. Sutures were used since the wound required more tension that could be applied with cecilio. The patient tolerated the procedure well. Laceration 6.: 5 cm in length, 2.0 cm in diameter The laceration was prepped with Betadine and then anesthetized with 6 cc of 2% lidocaine with epinephrine. The wound was irrigated with normal saline. The wound was explored and no foreign bodies were found in the wound. The wound was closed in 2 layers. The inner layer was closed with 3.0 Polysorb absorbable sutures x6. The outer layer was stapled closed with 9 cecilio. The patient tolerated the procedure well. <Oziel Molina MD - Last Filed: 04/30/21 04:35> Discharge Plan Discharge Clinical Impression: Laceration <Mandie Mccullough MD - Last Filed: 04/30/21 04:39> Patient Disposition: Home, Self-Care <Mandie Mccullough MD - Last Filed: 04/30/21 04:39> Instructions: Care For Your Stitches (ED), Laceration (ED), Staple Care (ED) <Mandie Mccullough MD - Last Filed: 04/30/21 04:39> Additional Instructions: 1. Recommend [id number] Tylenol/ibuprofen as needed for pain con trol. May cleanse wounds gently with soap and water but do not soak and immediately blot dry. May apply antibiotic ointment to the sites. 2. Follow-up with your primary care provider on Saturday for re- evaluation. You should either return to this emergency room or your primary care provider in 7 days for staple removal. Return to the ER for acute worsening of symptoms. <Mandie Mccullough MD - Last Filed: 04/30/21 04:39> Prescriptions: New doxycycline hyclate 100 mg tablet 100 mg PO BID 5 Days Qty: 10 RF: 0 cephalexin 500 mg capsule 500 mg PO Q12H 5 Days Qty: 10 RF: 0 No Action prednisone 20 mg tablet 40 mg PO DAILY 5 Days Qty: 10 RF: 0 <Mandie Mccullough MD - Last Filed: 04/30/21 04:39> Referrals: Physician,Unknown [Primary Care Provider] - 2 days <Mandie Mccullough MD - Last Filed: 04/30/21 04:39>
[2021-04-30] MEDS: iohexoL 350 MG/ML 100 ML INFUS..BTL 80 ML IV (00:54)
--- NOTE | 2021-04-30 03:00 | PC.NURSE ---
(Jesse) and this nurse at bedside. This nurse assisting MD with sutures/cecilio. Pt tolerating sutures/cecilio well.
[2021-04-30] MEDS: Lidocaine HCl 2% PF/Epi 1:200 20 ML VIAL INFILTRATI ×4 (04:02→04:43)
[2021-04-30] MEDS: cephALEXin 500 MG CAPSULE PO (04:25)
[2021-04-30] MEDS: Diphth,Pertus(ACell),Tet Adult 0.5 ML SYRINGE IM (04:26)
--- NOTE | 2021-04-30 04:58 | PC.NURSE ---
Lidocaine bottles taken from [facility] by nurse using inventory count as they would would not show up using override function or via the order. Charge nurse aware
== END 2021-04-30 05:02 | disposition home or self-care (01) ==
PROVIDERS: Emergency Provider Student in an Organized Health Care Education/Training Program
DX: S41.111A Laceration without foreign body of right upper arm, initial encounter (principal); X58.XXXA Exposure to other specified factors, initial encounter; Y93.9 Activity, unspecified; Y92.009 Unspecified place in unspecified non-institutional (private) residence as the place of occurrence of the external cause; Y99.9 Unspecified external cause status
CPT/HCPCS: 12037; 36415; 73206; 80053; 85025; 85610; 86850; 86900; 86901; 90471; 90715; 99283; 99284; Q9967

== ENCOUNTER 2021-05-10 10:36 | Emergency (ER) | payer OTHER, SELFPAY ==
--- NOTE | ~2021-05-10 | CT_ITS ---
EXAMINATION: CT FOREARM WITH CONTRAST, RIGHT CLINICAL INFORMATION: Laceration and swelling. Question DVT COMPARISON: CT angiogram 04/30/2021 TECHNIQUE: Axial 3 mm thin and reformatted 1 mm thin sagittal coronal images of right forearm is performed with IV 85 mL Omnipaque 350. This CT examination was performed using dose optimization techniques as appropriate, variously including the following: *Automated exposure control *Adjustment of mA and/or kV according to patient size (this includes techniques or standardized protocols for targeted exams where dose is matched to indication/reason for exam; i.e. extremities or head) *Use of iterative reconstruction technique DLP: 200 mGy-cm FINDINGS: In the area of laceration along the antecubital fossa there is a small fluid collection or seroma on axial image 475/2.. It measures 2.1 x 1.3 x 2.0 cm. Soft tissue hematoma or fluid collection in lateral musculature adjacent to the radius likely the brachial radialis likely representing small edema or abscesses. The superficial hypodensity in the brachioradialis muscle measures 1.7 x 2.9 cm. No additional areas of fluid or mass collection. There is no abnormal joint effusion. No bony abnormality. CT/CT forearm RT w con IMPRESSION: This area of laceration there is a small fluid collection which is very superficial in the antecubital fossa. There is a hypodense areas likely hemorrhagic contusion, edema or fluid collection and intramuscular in the brachioradialis muscle anterior and lateral to the head of the radius. There is no visible fracture seen. There is however superficial soft tissue edema in the subcutaneous soft tissues around and below the elbow joint.
[2021-05-10 10:59] VITALS: BP 121/73; PULSE 69; RESP 16; TEMP 36.6; O2SAT 98; BMI 30.2
[2021-05-10 13:11] LABS: MANUAL DIFF FLAG NO
[2021-05-10 13:20] LABS: Basophils Percent Auto 0.3 % (0-2); Eosinophils Percent Auto 0.4 % (0-4); Hematocrit 44.8 % (42-52); Hemoglobin 16.2 g/dl (14.0-18.0); Imm Gran Abs Auto 0.02 X10*3/uL (0.00-0.03); Imm Gran Pct Auto 0.3 % (0.0-0.4); Lymphocytes Absolute Auto 2.3 X10*3/uL (1.2-4.9); Lymphocytes Percent Auto 30.1 % (20-40); Mean Corpuscular HGB Conc 36.2 g/dl (31.0-36.0); Mean Corpuscular Hemoglobin 31.2 pg (27.0-33.0); Mean Corpuscular Volume 86.3 fL (80-98); Mean Platelet Volume 11.6 fL (9.4-12.4); Monocytes Absolute Auto 0.4 X10*3/uL (0.1-1.2); Monocytes Percent Auto 5.5 % (2-11); Neutrophils Absolute Auto 4.8 X10*3/uL (2.0-8.3); Neutrophils Percent Auto 63.4 % (45-73); Platelet Count 273 X10*3/uL (160-400); Red Blood Count 5.19 X10*6/uL (4.60-5.80); Red Cell Distribution Width 12.5 % (11.0-16.0); White Blood Count 7.6 X10*3/uL (4.8-10.8)
[2021-05-10 13:27] LABS: Alanine Aminotransferase 23 U/L (0-40); Albumin Level 4.4 g/dL (3.5-5.0); Alkaline Phosphatase 58 U/L (39-117); Anion Gap 12 (12-20); Aspartate Amino Transferase 16 U/L (5-37); Bilirubin Total 0.7 mg/dL (0.0-1.0); Blood Urea Nitrogen 6 mg/dL (9-16); C Reactive Protein 0.03 mg/dL (< or = 0.50); Calcium 9.9 mg/dL (8.4-10.2); Carbon Dioxide 28 mmol/L (22-29); Chloride 104 mmol/L (96-108); Creatinine Clr Calc Pharmacy 112.6; Estimated Glomerular Filt Rate > 60; Glucose Random 88 mg/dL (60-115); Magnesium 2.1 mg/dL (1.6-2.6); Potassium 4.6 mmol/L (3.3-5.1); Sodium 139 mmol/L (135-145); Total Protein 7.2 g/dL (6.5-8.0)
[2021-05-10] MEDS: 0.9 % Sodium Chloride 1,000 ML 999 ML IVCONT (13:36)
[2021-05-10] MEDS: Piperacillin Sodium/Tazobactam 3.375 GM in 0.9 % Sodium Chloride 50 ML IV (13:53)
[2021-05-10 14:10] LABS: Erythrocyte Sedimentation Rate 2 MM/HR (0-15)
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
[2021-05-10] MEDS: iohexoL 350 MG/ML 100 ML INFUS..BTL IV (15:08)
[2021-05-10 15:25] VITALS: BP 134/89; PULSE 74; RESP 18; TEMP 36.9; O2SAT 100
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
--- NOTE | 2021-05-10 17:32 | PC.NURSE ---
DR DUMONT CAME INTO SEE PT AT BESIDE AND WANTS HIM TO LEAVE ON PO ANTIBIOTIC AND HE WILL SEE THE PT IN HIS OFFICE IN 1 WEEK.
== END 2021-05-10 17:34 | disposition home or self-care (01) ==
PROVIDERS: Physician Assistant Medical; Emergency Provider Student in an Organized Health Care Education/Training Program
DX: L03.113 Cellulitis of right upper limb (principal); M79.631 Pain in right forearm; Z48.02 Encounter for removal of sutures; Z79.899 Other long term (current) drug therapy
CPT/HCPCS: 36415; 73201; 80053; 83605; 83735; 85025; 85652; 86140; 87040; 96365; 99284; J2543; Q9967

== ENCOUNTER 2021-05-31 22:15 | Emergency (ER) | payer OTHER, SELFPAY ==
[2021-05-31 22:53] VITALS: BP 101/55; PULSE 74; RESP 15; TEMP 36.6; O2SAT 97; BMI 29.2
== END 2021-06-01 00:20 | disposition left against medical advice (07) ==
PROVIDERS: Emergency Provider Emergency Medicine; PCP Internal Medicine
DX: S49.90XA Unspecified injury of shoulder and upper arm, unspecified arm, initial encounter (principal); X58.XXXA Exposure to other specified factors, initial encounter; Y93.9 Activity, unspecified; Y92.9 Unspecified place or not applicable; Y99.9 Unspecified external cause status
CPT/HCPCS: 99281; 99282

== ENCOUNTER 2021-06-03 08:58 | Emergency (ER) | payer OTHER, SELFPAY ==
[2021-06-03 09:12] VITALS: BP 110/68; PULSE 85; RESP 18; TEMP 36.3; O2SAT 96; BMI 29.4
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
== END 2021-06-03 10:21 | disposition home or self-care (01) ==
PROVIDERS: Emergency Provider Emergency Medicine
DX: R20.2 Paresthesia of skin (principal); S51.801D Unspecified open wound of right forearm, subsequent encounter; X58.XXXD Exposure to other specified factors, subsequent encounter
CPT/HCPCS: 99283

== ENCOUNTER 2021-07-19 11:41 | Emergency (ER) | payer OTHER, SELFPAY ==
[2021-07-19 11:44] VITALS: BP 128/72; PULSE 78; RESP 18; TEMP 37; O2SAT 97; BMI 29.4
--- NOTE | 2021-07-19 12:59 | ED_ITS ---
HPI - Male Genitourinary General Chief complaint: Urogenital-Male Stated complaint: arm and abd pain Time Seen by Provider: 07/19/21 12:17 Source: patient Mode of arrival: ambulatory Limitations: no limitations History of Present Illness MD Complaint: possible STD exposure (Lump to penis) Onset (ago): day(s) (Few days he is unsure exactly when he 1st noticed) Duration: constant and progressively worsening Location: penis Quality: other (No pain) Relieving factors: none Exacerbating factors: none Context: new sexual partner Associated symptoms: Reports denies other symptoms Related Data Sexually active: Yes Previous Rx's Medication Instructions Recorded prednisone 20 mg tablet 40 mg PO DAILY 5 Days #10 tab 07/05/20 cephalexin 500 mg capsule 500 mg PO Q12H 5 Days #10 cap 04/30/21 doxycycline hyclate 100 mg tablet 100 mg PO BID 5 Days #10 tab 04/30/21 cephalexin 500 mg capsule 500 mg PO Q6H 14 Days #56 cap 05/10/21 doxycycline hyclate 100 mg tablet 100 mg PO BID 14 Days #28 tab 05/10/21 ibuprofen 800 mg tablet 800 mg PO Q8H PRN #14 tab 05/10/21 oxycodone 5 mg tablet 5 mg PO Q6H PRN #14 tab 05/10/21 Allergies Allergy/AdvReac Type Severity Reaction Status Date / Time No Known Allergies Allergy Verified 07/05/20 13:42 Review of Systems Review of Systems: Constitutional : No Weight loss, No Fever, No Chills, No Night Sweats, No Fatigue, NoMalaise ENT/Mouth: No ear pain, No sore throat, No Difficulty swallowing Cardiovascular : No Chest Pain, No SOB, No Dyspnea on Exertion, No Orthopnea, NoEdema, No Palpitations Respiratory : No Cough, No Sputum, No Wheezing, No Dyspnea Gastrointestinal : No Nausea, No Vomiting, No Diarrhea, No abdominal Pain, No Hematochezia, No Melena Genitourinary : + penis lump, No testicular pain, No irregular bleeding, No Dysuria, No Urinary Frequency, No Hematuria,No Urinary Incontinence, No Urgency, No Flank Pain Musculoskeletal : No joint pain, No Myalgias, No Joint Swelling Skin : No Skin Lesions, No rash Neuro : No Weakness, No Numbness, No Paresthesias, No Loss of Consciousness, NoDizziness, No Headache Psych : No Social Issues, Heme/Lymph: No Bruising, No Bleeding,No Lymphadenopathy Endocrine : No Polyuria, No Polydipsia, No Temperature Intolerance + THOUGHTS OF STDS Yes all other systems are reviewed and are negative [facility] Past Medical History Attestation statement: The following information was validated with the patient. Medical History No known health problems Social History Social History Alcohol intake: never Substance Use Type: Marijuana Advance Directives: No Advance Directives Information Provided: No Physical Exam Vital Signs: Vital Signs: Last Vital Signs Temp 98.6 F 07/19/21 11:44 Pulse 78 07/19/21 11:44 Resp 18 07/19/21 11:44 BP 128/72 07/19/21 11:44 Pulse Ox 97 07/19/21 11:44 BMI result Body Mass Index 29.4 vital signs have been reviewed as normal and appeared to be correct. Blood pressure normal. Heart rate normal. Respiration rate normal. Temperature normal. Oxygen saturation normal. Appearance: Alert. Oriented X3. No acute distress. Head: Normal external exam. Normocephalic. Atraumatic. Eyes: PERRLA. EOMI. Conjunctiva and sclera normal. Eyelids normal. ENT: Pharynx normal. Uvula midline. Moist mucous membranes. Neck: Normal inspection. Neck supple. FROM. No adenopathy. No meningeal signs. CVS: Normal heart rate and rhythm. Heart sound normal. No murmurs noted. Pulses normal throughout. Respiratory: No respiratory distress. Painless inspiration. Breath sounds normal. No wheezes/rales/rhonchi noted. Chest nontender. No accessory muscle usage noted or decreased air movement noted. Abdomen: Soft and nontender. Bowel sounds normal in all 4 quadrants. No distention noted. No organomegaly noted. No visible injury noted. : Chaperoned by Dr. Blanton and Alex PCT. Patient noted to have a general warts to the mid shaft of the penis. No abscesses noted. The rest of the external exam is within normal limits no additional masses/lumps/ecchymosis/edema/erythema/lacerations/lesions/vesicles/induration or tenderness noted. No hernia noted. No inguinal lymphadenopathy noted. Normal penis free of discharge. The scrotum is normal. Testicles are both descended bilaterally and appear normal. No hydrocele or scrotal mass/swelling noted. No varicocele. Epididymides normal. No blue dot sign. Back: No CVA tenderness. Full range of motion noted. Skin: Skin warm and dry. Normal skin color. Normal skin turgor. No rashes/lesions/lacerations noted. Extremities: Extremities exhibit normal range of motion. Extremities nontender. Neuro: Oriented X 3. No motor deficit. No sensory deficit. Reflexes normal. Course Course Course Narrative: 30-year-old male presenting to the ED with a lump that he noticed on the shaft of his penis over the past few days. He reports it is nonpainful. He reports he has had unprotected intercourse with multiple females. He is denying any abdominal pain or any abnormal discharge. He does not believe he has gonorrhea chlamydia I explained to him that this is general warts and that he should have a gonorrhea chlamydia sample obtained and possible treatment although patient declined and reports that he just wants to leave and follow up with Dr. Mercado the urologist for possible therapy for his genital warts and to return if any new or worsening symptoms and to stay away from having any sexual intercourse until he has his surgery to remove the genital warts. Patient understands agrees with this plan. [facility] - Male Genitourinary Medical Records Attestation: I reviewed the patient's medical records. Discharge Plan Discharge Clinical Impression: Genital warts due to HPV (human papillomavirus) Patient Disposition: Home, Self-Care Instructions: Sexually Transmitted Diseases (ED), Genital Warts (ED) Prescriptions: No Action prednisone 20 mg tablet 40 mg PO DAILY 5 Days Qty: 10 RF: 0 doxycycline hyclate 100 mg tablet 100 mg PO BID 5 Days Qty: 10 RF: 0 cephalexin 500 mg capsule 500 mg PO Q12H 5 Days Qty: 10 RF: 0 doxycycline hyclate 100 mg tablet 100 mg PO BID 14 Days Qty: 28 RF: 0 cephalexin 500 mg capsule 500 mg PO Q6H 14 Days Qty: 56 RF: 0 ibuprofen 800 mg tablet 800 mg PO Q8H PRN (Reason: pain) Qty: 14 RF: 0 oxycodone 5 mg tablet 5 mg PO Q6H PRN (Reason: pain) Qty: 14 RF: 0 Talia: Tian Mercado MD [Physician] - 1 day (Call today to make a follow-up appointment either earliest convenience) Print Language: French
== END 2021-07-19 13:29 | disposition home or self-care (01) ==
PROVIDERS: Emergency Provider Emergency Medicine
DX: A63.0 Anogenital (venereal) warts (principal); F12.90 Cannabis use, unspecified, uncomplicated; Z79.899 Other long term (current) drug therapy
CPT/HCPCS: 99283

== ENCOUNTER 2023-10-29 13:05 | Emergency (ER) | payer SELFPAY ==
--- NOTE | 2023-10-29 13:08 | ECG_ITS ---
Test Reason : CHEST PAIN Blood Pressure : / mmHG Vent. Rate : 095 BPM Atrial Rate : 095 BPM P-R Int : 168 ms QRS Dur : 068 ms QT Int : 346 ms P-R-T Axes : 069 017 008 degrees QTc Int : 434 ms Normal sinus rhythm Normal ECG When compared with ECG of 05-JUL-2020 14:24, No significant change was found Referred By: Generic ED Physician Electronically Signed By:HOSEA JEFFERSON MD
[2023-10-29 13:46] VITALS: BP 154/95; PULSE 99; RESP 16; TEMP 37.9; O2SAT 97; BMI 28.7
--- NOTE | 2023-10-29 14:30 | ECG_ITS ---
Test Reason : REPEAT EKG Blood Pressure : / mmHG Vent. Rate : 080 BPM Atrial Rate : 080 BPM P-R Int : 180 ms QRS Dur : 074 ms QT Int : 382 ms P-R-T Axes : 059 014 016 degrees QTc Int : 440 ms Normal sinus rhythm Normal ECG When compared with ECG of 29-OCT-2023 13:12, No significant change was found Referred By: Myron Blanton Electronically Signed By:HOSEA JEFFERSON MD
[2023-10-29 15:48] LABS: MANUAL DIFF FLAG NO
[2023-10-29 15:50] LABS: Basophils Percent Auto 0.4 % (0-2); Eosinophils Absolute Auto 0.1 X10*3/uL (0.0-0.4); Eosinophils Percent Auto 0.6 % (0-4); Hematocrit 43.5 % (42.0-52.0); Hemoglobin 16.2 g/dl (14.0-18.0); Imm Gran Abs Auto 0.02 X10*3/uL (0.00-0.03); Imm Gran Pct Auto 0.2 % (0.0-0.4); Lymphocytes Absolute Auto 3.3 X10*3/uL (1.2-4.9); Lymphocytes Percent Auto 39.7 % (20-40); Mean Corpuscular HGB Conc 37.2 g/dl (31.0-36.0); Mean Corpuscular Hemoglobin 31.2 pg (27.0-33.0); Mean Corpuscular Volume 83.8 fL (80.0-98.0); Mean Platelet Volume 11.2 fL (9.4-12.4); Monocytes Absolute Auto 0.5 X10*3/uL (0.1-1.2); Monocytes Percent Auto 5.6 % (2-11); Neutrophils Absolute Auto 4.5 x10*3/uL (2.0-8.3); Neutrophils Percent Auto 53.5 % (45-73); Platelet Count 202 X10*3/uL (160-400); Red Blood Count 5.19 X10*6/uL (4.60-5.80); Red Cell Distribution Width 12.5 % (11.0-16.0); White Blood Count 8.4 X10*3/uL (4.8-10.8)
[2023-10-29 16:09] LABS: Anion Gap 13 (12-20); Blood Urea Nitrogen 7 mg/dL (9-16); Calcium 9.6 mg/dL (8.4-10.2); Carbon Dioxide 28 mmol/L (22-29); Chloride 102 mmol/L (96-108); Creatinine Clr Calc Pharmacy 121.5; Estimated Glomerular Filt Rate > 60; Glucose Random 82 mg/dL (60-115); Potassium 4.1 mmol/L (3.3-5.1); Sodium 139 mmol/L (135-145)
[2023-10-29 16:22] LABS: Troponin-I High Sensitivity < 2.7 ng/L (<3.5-35.0)
== END 2023-10-29 21:50 | disposition left against medical advice (07) ==
PROVIDERS: Emergency Provider Emergency Medicine
DX: R07.89 Other chest pain (principal); F41.1 Generalized anxiety disorder; F43.0 Acute stress reaction; Z79.899 Other long term (current) drug therapy
CPT/HCPCS: 36415; 80048; 84484; 85025; 93005; 99283

== ENCOUNTER → 2023-10-29 13:08 | Outpatient (BNV) | payer SELFPAY | PROVIDERS: Visit Provider Internal Medicine Cardiovascular Disease | DX: R07.9 Chest pain, unspecified (principal) | CPT/HCPCS: 93010 ==